=== PATIENT | female | born 1960 | race Caucasian/White ===

== ENCOUNTER 2018-10-26 05:33 | Observation (INO) | payer BC ==
[~2018-10-26] VITALS: Ht 160 cm; Wt 62.7 kg
[~2018-10-26 05:33] MED LIST: ADDERALL 10 MG10 MG PO; ATENOLOL25 MG PO; AUGMENTIN 875-1 EACH PO; CLARITIN10 M2 PO; EPIPEN 2-P0.3 MG/0.3 IM; ESTRADIOL1 MG PO; FLUTICASONE PRO16 GM NAS; HYDROCHLOROTHIA25 MG PO; IMODIUM MULTI-1 EACH PO; KLOR-CON M2020 MEQ PO; KLOR-CON20 MEQ PO; OMEPRAZOLE20 MG PO; ULTRAM50 MG PO; ZOFRAN ODT4 MG PO
--- OUTSIDE RECORDS SUMMARY | 2018-10-26 05:36 | XMS ---
PreManage Notification: AMADA PLASENCIA Security Explosive Operator Fuse Events No recent Security Events currently on file CRITERIA MET - [facility] C[facility] PROVIDERS MELISSA REDDING Internal Medicine Current PHONE: Unknown MELISSA REDDING Primary Care Current PHONE: [phone] Ann-Marie has no Care Guidelines for this patient. Anju VISIT COUNT (12 MO.) Kade Hernandez TOTAL 1 NOTE: Visits indicate total known visits. ED/UCC VISIT TRACKING (12 MO.) 10/26/2018 05:[address] [facility] TYPE: Emergency COMPLAINT: - FALL INPATIENT VISIT TRACKING (12 MO.) No inpatient visits to display in this time frame [email or web address]
[2018-10-26] MEDS ORDERED: DEXTROAMP-AMPHE15 MG PO (07:27)
[2018-10-26] MEDS ORDERED: FUROSEMIDE20 MG PO (07:28)
[2018-10-26] MEDS ORDERED: OMEPRAZOLE40 MG PO (10:14)
[2018-10-27] MEDS ORDERED: NICOTINE1 EAC1 TD (11:03)
--- NOTE | 2018-10-28 07:49 | EKG ---
[facility] [address] [facility] [facility] [place] [address] Signed Normal sinus rhythm Prolonged QT Abnormal ECG No previous ECGs available Confirmed by LJ HAN MD ([id number]) on 10/28/2018 7:48:47 AM Electronically Signed By: LJ HAN MD 10/28/18 0749 PATIENT NAME: AMADA PLASENCIA BJ Electrocardiogram DATE OF : 62 PHYSICIAN: LJ HAN MD REPORT #: [id number] REPORT IS CONFIDENTIAL AND NOT TO BE RELEASED WITHOUT AUTHORIZATION
== END 2018-10-27 11:25 | disposition home or self-care (01) ==
LOC: ED 05:33 → CCU 05:34
PROVIDERS: ADMIT Internal Medicine
DX: R55 Syncope and collapse (principal); E86.0 Dehydration; E87.6 Hypokalemia; E83.42 Hypomagnesemia; I10 Essential (primary) hypertension; F17.210 Nicotine dependence, cigarettes, uncomplicated; R60.0 Localized edema; F90.9 Attention-deficit hyperactivity disorder, unspecified type; K21.9 Gastro-esophageal reflux disease without esophagitis; Z88.5 Allergy status to narcotic agent; Z79.890 Hormone replacement therapy; Z79.899 Other long term (current) drug therapy
CPT/HCPCS: 36415; 70450; 71045; 80048; 80053; 80176; 81001; 83735; 83880; 84484; 85025; 85379; 93005; 93010; 93306; 96361; 96374; 96375; 96376; 99285-25; 99406; G0378; G0480; J2405; J2550; J3475; J3480; J7030; J7040

== ENCOUNTER 2019-09-03 21:16 | Observation (INO) | payer BC ==
[~2019-09-03] VITALS: Ht 160 cm; Wt 68.5 kg
[~2019-09-03 21:16] MED LIST changes: +DEXTROAMP-AMPHE15 MG PO; +FUROSEMIDE20 MG PO; +NICOTINE1 EAC1 TD; +OMEPRAZOLE40 MG PO
--- OUTSIDE RECORDS SUMMARY | 2019-09-03 21:18 | XMS ---
PreManage Notification: AMADA PLASENCIA Security Hand Cementer Events No recent Security Events currently on file CRITERIA MET - [facility] CARE PROVIDERS MILADIS Perkins Internal Medicine Current PHONE: Unknown MELISSA REDDING Primary Care Current PHONE: [phone] Ann-Marie has no Care Guidelines for this patient. Anju VISIT COUNT (12 MO.) 2 JAMES Hernandez TOTAL 2 NOTE: Visits indicate total known visits. ED/UCC VISIT TRACKING (12 MO.) 09/03/2019 21:17 [facility] TYPE: Emergency COMPLAINT: - LOC, AMS 10/26/2018 05:33 [facility] TYPE: Emergency COMPLAINT: - FALL INPATIENT VISIT TRACKING (12 MO.) 10/26/2018 05:[address] [facility] TYPE: Observation COMPLAINT: - SYNCOPE DIAGNOSES: - Dehydration - Hypomagnesemia - Hypokalemia - Syncope and collapse - Gastro-esophageal reflux disease without esophagitis - Allergy status to narcotic agent status - Nicotine dependence, cigarettes, uncomplicated - Essential (primary) hypertension - Attention-deficit hyperactivity disorder, unspecified type - Localized edema - Other intermission coordinator (current) drug therapy - Hormone replacement therapy [email or web address]
--- NOTE | 2019-09-04 | NUR ---
[id number] PATIENT ARRIVED VIA STRETCHER. REQUIRED ASSISTANCE TO MOVE OVER TO BED. AWAKE BUT DROWSEY. ORIENTED TO PERSON AND PLACE. 4L NC IN PLACE. VS STABLE.
--- NOTE | 2019-09-04 01:00 | NUR ---
PATIENT APPEARS TO BE SLEEPING SOUNDLY. RR 16, SHALLOW BREATHS. IV FLUIDS STARTED PER ORDER. PATIENT WOKE TO SOUND. ABLE TO TAKE ORAL MEDS WITHOUT ISSUE. DENIES NEED TO VOID OR ANY CONCERNS. CONTINUES TO REQUIRE 4L VIA OXYMASK. HOB ELEVATED.
--- NOTE | 2019-09-04 02:59 | NUR ---
PATIENT UP TO BSC. VOID 450 MLS OF URINE. SMALL BM, MOSTLY LIQUID WITH PEBBLE SIZE FORMED STOOL. PATIENT DENIES ANY CONCERNS. IS ORIENTED TO ALL EXCEPT THE EVENT PRIOR TO ARRIVAL IN ED. SPEECH IS CLEAR. PATIENT RETURNED TO BED. IV FLUIDS PER ORDER. SITE WNL. 4L NC IN PLACE. HOB ELEVATED. CALL LIGHT IN REACH.
--- NOTE | 2019-09-04 04:00 | NUR ---
PATIENT SLEEPING SOUNDLY. WAKES TO VOICE, ANSWERS QUESTIONS APPROPRIATELY. CONTINUES TO BE VERY DROWSEY. BP 87/51 WITH HR 60. MANUAL BP 88/54 HR 62. MD NOTIFIED. NO NEW ORDERS. PATIENT DENIES TOILETING NEEDS. CALL LIGHT IN REACH. BED ALARM ACTIVE.
--- NOTE | 2019-09-04 06:39 | NUR ---
PATIENT UP TO BSC. APPEARS MORE STEADY ON HER FEET. SPEECH IS CLEAR. PATIENT REPORTS FEELING VERY TIRED BUT IS ALERT. PATIENT ORDERED BREAKFAST AND FRESH ICE WATER PROVIDED. NO FURTHER NEEDS AT THIS TIME.
--- NOTE | 2019-09-04 08:01 | NUR ---
PT AWAKE SITTING UP FOR BKF AT THIS TIME. WHEN ASKED IF SHE HAS ANY WITHDRAWEL S/S IN THE MORING FROM ETOH USE "NO" I JUST DRINK AT NIGHT AND HAVE NO PROBLEMS DURING THE DAY. ASSESSMENT COMPLETED.
--- NOTE | 2019-09-04 09:32 | NUR ---
pt up to the bathroom voided and then ambulated in the erwin from room and back to room x2. Then pt up to the chair. Pt then c/o of being hot and not feeling well.Back to bed and then Dr Garcia into see pt and then order planner into visit. Pt will be discharged to home today,
--- NOTE | 2019-09-04 09:52 | NUR ---
In and spoike with Sheryl. She is discharging home today. Declines Peer to Peer support from [facility] today. States she is thinking about going to a rehab program, but has not made up her mine as of yet.
--- NOTE | 2019-09-04 10:44 | NUR ---
PT RECEIVED DC'D HOME ORDERS, AND TO HAVE HOLTER MONITOR PLACED BEFORE DISCHARGE. RT ABDULKADIR PLACED MONITOR AND ALL QUESTION ANSWERED. PT RECEIVED FLU INJUCTION BEFORE DISCHARGE.
--- NOTE | 2019-09-04 20:00 | EKG ---
[facility] [address] [facility] [place], [place] [address] Signed Normal sinus rhythm Prolonged QT Abnormal ECG When compared with ECG of 26-OCT-2018 06:01, No significant change was found Confirmed by LJ HAN MD ([id number]) on 09/04/2019 7:59:50 PM Electronically Signed By: LJ HAN MD 09/04/191999 PATIENT NAME: AMADA PLASENCIA BJ Electrocardiogram DATE OF : 62 PHYSICIAN: LJ HAN MD REPORT #: [id number] REPORT IS CONFIDENTIAL AND NOT TO BE RELEASED WITHOUT AUTHORIZATION
== END 2019-09-04 10:30 | disposition home or self-care (01) ==
LOC: ED 21:16 → CCU 21:18
PROVIDERS: ADMIT Internal Medicine
DX: R55 Syncope and collapse (principal); F10.229 Alcohol dependence with intoxication, unspecified; E87.6 Hypokalemia; E83.42 Hypomagnesemia; I10 Essential (primary) hypertension; F17.210 Nicotine dependence, cigarettes, uncomplicated; F90.9 Attention-deficit hyperactivity disorder, unspecified type; K21.9 Gastro-esophageal reflux disease without esophagitis; Z88.5 Allergy status to narcotic agent; Z79.899 Other long term (current) drug therapy; Z79.890 Hormone replacement therapy
CPT/HCPCS: 36415; 51702; 71045; 80048; 80053; 80176; 81001; 83735; 84443; 84484; 85025; 90688; 93005; 93010; 96361; 96365; 96366; 96372; 96375; 99285-25; 99406; C9113; G0008; G0378; G0480; J1650; J3475; J7030